=== PATIENT | male | born 1990 | race American Indian/Alaskan Native ===

== ENCOUNTER 2019-07-17 15:31 | Emergency (ER) | payer SELFPAY ==
[2019-07-17 15:47] VITALS: BP 126/80
--- NOTE | 2019-07-17 15:48 | Emergency Department Report ---
Blank Doc - Documentation Documentation: 28-year-old male that presents with right elbow lac. This initial assessment/diagnostic orders/clinical plan/treatment(s) is/are subject to change based on patient's health status, clinical progression and re- assessment by fellow clinical providers in the ED. Further treatment and workup at subsequent clinical providers discretion. Patient/guardians urged not to elope from the ED as their condition may be serious if not clinically assessed and managed. Initial orders include: 1- Patient sent to [facility] for further evaluation and treatment
[2019-07-17] MEDS ORDERED: TRIPLE ANTIBIOTIC TP ONE (17:48)
[2019-07-17] MEDS ORDERED: NACL 0.9% 500 ML IR ONE (17:48)
--- NOTE | 2019-07-17 17:57 | Emergency Department Report ---
Chief Complaint: Extremity Injury, Upper Stated Complaint: RT ELBOW CUT/PAIN Time Seen by Provider: 07/17/19 15:48 - HPI History of Present Illness: 28-year-old -[place] male presents to the emergency room for a cut to his left elbow for over 24 hours. Patient states he was pushing a refrigerator when he cut his arm at work. Patient denies any fever chills denies any purulent discharge denies any swelling. She reports no past medical history currently takes no medications on a daily basis and has no known drug allergies. - Exam Vital Signs: Vital Signs 07/17/19 15:44 Temperature 98.7 F Pulse Rate 50 L Respiratory 16 Rate Blood Pressure 126/80 [Left] O2 Sat by Pulse 100 Oximetry Physical Exam: Patient's alert and oriented 3 no acute distress. She is nontoxic Vital signs are stable no tachycardia Right elbow has a 4 cm laceration with granulation around the edges nonpurulent discharge not actively bleeding. MSE screening note: Focused history and physical exam performed. Due to findings the following was ordered: Constipation he can keep the wound clean and dry with bowel sounds. He can get [id number] Neosporin or triple antibiotics. I discussed the patient to keep it covered when he is out side and keep cover while at home. Discussed the patient he can take Tylenol or ibuprofen for pain management. ED Disposition for MSE Condition: Stable
--- NOTE | 2019-07-17 17:59 | Emergency Department Report ---
ED Laceration HPI - HPI Chief Complaint: Extremity Injury, Upper Stated Complaint: RT ELBOW CUT/PAIN Time Seen by Provider: 07/17/19 15:48 Occurred When: Yesterday Location: Upper Extremity Tetanus Status: Not up to Date Laceration Symptoms: Yes Weakness, No Foreign Body Sensation, No Numbness, No Pain Other History: 28-year-old -[place] male presents to the emergency room for a cut to his left elbow for over 24 hours. Patient states he was pushing a refrigerator when he cut his arm at work. Patient denies any fever chills denies any purulent discharge denies any swelling. She reports no past medical history currently takes no medications on a daily basis and has no known drug allergies. ED Review of Systems ROS: Stated complaint: RT ELBOW CUT/PAIN Other details as noted in HPI Comment: All other systems reviewed and negative ED Past Medical Hx - Past Medical History Previous Medical History?: No - Surgical History Additional Surgical History: RT ARM SURGERY - Social History Smoking Status: Light Tobacco Smoker Substance Use Type: None Laceration Physical Exam - Exam General: Vital signs noted. No distress. Alert and acting appropriately. Wound Length (cm): 4 Laceration Location: Other (Constipation he can keep the wound clean and dry with bowel sounds. He can get [id number] Neosporin or triple antibiotics. I discussed the patient to keep it covered when he is out side and keep cover while at home. Discussed the patient he can take Tylenol or ibuprofen for pain management.) Laceration Exam: Yes Normal Distal CMS, No Foreign Body, No Exposed Tendon, Vessel, or Nerve, No Tendon Injury ED Course Vital Signs 07/17/19 15:44 Temperature 98.7 F Pulse Rate 50 L Respiratory 16 Rate Blood Pressure 126/80 [Left] O2 Sat by Pulse 100 Oximetry ED Medical Decision Making - Medical Decision Making 28-year-old -[place] male presents to the emergency room for a cut to his left elbow for over 24 hours. Patient states he was pushing a refrigerator when he cut his arm at work. Patient denies any fever chills denies any purulent discharge denies any swelling. She reports no past medical history currently takes no medications on a daily basis and has no known drug allergies. The wound clean and dry. Apply dressing why you're out takeoff dressing at home he can use triple antibiotic cream. Tylenol Motrin as needed for pain. Her now up-to-date on her tetanus. Critical care attestation.: If time is entered above; I have spent that time in minutes in the direct care of this critically ill patient, excluding procedure time. ED Disposition Clinical Impression: Laceration of right elbow Qualifiers: Encounter type: initial encounter Qualified Code(s): S51.011A - Laceration without foreign body of right elbow, initial encounter Disposition: TO HOME OR SELFCARE Is pt being admited?: No Does the pt Need Aspirin: No Condition: Stable Instructions: Laceration (ED) Additional Instructions: Please keep wound clean and dry. Bandage on while outside bandage off Y inside. He continues triple antibiotic take Tylenol and/or Motrin as needed for pain management.
== END 2019-07-17 18:08 ==
LOC: ED 15:31
DX: S51.011A Laceration without foreign body of right elbow, initial encounter (principal); F17.200 Nicotine dependence, unspecified, uncomplicated; Z98.890 Other specified postprocedural states; W45.8XXA Other foreign body or object entering through skin, initial encounter; Y93.89 Activity, other specified; Y92.89 Other specified places as the place of occurrence of the external cause; Y99.8 Other external cause status
CPT/HCPCS: A6250